=== PATIENT | female | born 1990 | race Hispanic/Latino ===

== ENCOUNTER 2020-01-14 04:35 | Inpatient (IN) | payer OTHER, SELFPAY ==
[2020-01-14] VITALS (24 sets, daily range): BP systolic 95–134; BP diastolic 50–77; PULSE 65–96; RESP 11–88; TEMP 36.2–37.2; O2SAT 16–100; BMI 26.9
[2020-01-14 05:12] LABS: Absolute Neutrophil Count 3.1 X10^3/uL (2.0-7.7); Basophil# 0.02 X10^3/uL; Basophil% 0.4 % (0-1); Eosinophil# 0.04 X10^3/uL; Eosinophils% 0.8 % (0-5); Hematocrit 34.3 % (37-47); Hemoglobin 10.8 g/dL (12.0-15.0); Mean Corp Hgb Conc 31.5 g/dL (32-36); Mean Corpuscular Hgb 25.8 pg (27.0-32.0); Mean Corpuscular Volume 82.1 fL (81-99); Mean Platelet Vol. 12.6 fl (6.2-12.0); Monocyte# 0.48 X10^3/uL; Monocyte% 9.3 % (0-10); NRBC Flagged by Analyzer 0 % (0-5); Neutrophil # 3.13 X10^3/uL (2.7-7.7); Neutrophil % 60.4 % (47-70); Platelet Count 219 K/mm3 (150-450); RBC Distribution Width CV 15.6 % (11.6-14.6); RBC Distribution Width SD 45.9 fl (35.1-43.9); Red Blood Count 4.18 M/mm3 (4.2-5.4); White Blood Count 5.2 K/mm3 (4.4-11.0)
[2020-01-14] MEDS: Lactated Ringers 1,000 ML 50 ML IV (05:14)
--- NOTE | 2020-01-14 05:38 | PCM.HP.BLA ---
History and Physical Date of Admission: 01/14/20 ACOG ANTEPARTUM RECORD - HISTORY AND PHYSICAL (01/14/2020) Name: LEN CERVANTES History of This : This is a 29-year-old G3, P1 Ab1 who presents to labor and delivery at 38+ weeks gestation with gross rupture of membranes. Exam suspicious for breech presentation and this was confirmed with bedside ultrasound. care has otherwise been uneventful. OB Physician: JUAN JOSE [place]'s Physician: [facility] ...................................................................... : 1990 Age: 29 Address: [address] [place] [address] Phone: (h) [phone] Insurance Carrier: [facility]/CLAIMS DEPT [id number] Emergency Contact: DEXTER PRUITT/ [phone] ...................................................................... Final JOHANA: 01/28/20 By Ultrasound: PARITY: (G-Total Pregnancies P-Fullterm,Premature,Induced AB,Spont AB, Ectopics, Multiple,Living) JOHANA CONFIRMATION: By LMP: 04/23/19 Final JOHANA: 01/28/20 OB PROBLEM LIST: Transfer of care from [facility] at 30 w re to inconsistent provider care. Cousin born w defects req total care. Had genetic testing already. Wants epidural but NOT to be totally numb. First baby born in [place]. Urine Group B Strep positive 06-16-19 and 11-19-19. Hx of SGA, growth u/s q4wks ALLERGIES: No Known Allergies MEDICATIONS: 28 mg iron-800 mcg tablet One pill by mouth once a day Unisom (doxylamine) 25 mg tablet One pill by mouth once a day SOCIAL HISTORY: Smoking - Never Alcohol Use - socially not while Diet - balanced Diet and Doesn't drink milk. Coffee once a week. Water 2 liters. Lifestyle - moderate stress lifestyle Exercise - active Job Description - homemaker Illicit Drug Use - denies use of street drugs Sexual Activity - Residence - lives with Place of - [facility] Spouse-Sig Other Name - Dexter Spouse-Sig Other Occupation - clinical advisor/ [employer] Spouse-Sig Other Phone No - [phone] Children Name(s) - Adela PRIOR DELIVERY HISTORY DEL DATE GEST LAB WT LB WT OZ TYPE ANES LABOR TX 10 Oct 30 10 0 0 0 Sab General No Jul 29 [phone] Vag Epidural No ANTEPARTUM FLOW CHART VISIT RTC FU F F IA U U DATE WK MD WKS HT PN HR M SS BP ED WT IA GL D EF ST __ ____ ___ __ __ ___ __ __ __ ___ __ __ __ ___ __ 24 Dec JM 1 36 V + + 118/60 sl 157 - - Dec JM 2 34 V on + 100/64 tr 156 - - Nov JM 2 33 V + + 100/58 0 153 tr - Dec 11 JM 2 31 - + + 110/64 0 151 tr - ANTEPARTUM NOTE(S): Jan 05 2020: Insomnia,Low Backache,Good FM Dec 22 2019: Dec 10 2019: Reviewed FM Nov 27 2019: transfer of care COMPREHENSIVE ANTEPARTUM NOTE(S): Jan 05 2020: 36wk, GBS bacteruria. For repeat growth u/s at 38wks w/ hx of SGA. JM Dec 22 2019: Len is here with SO for visit. She is doing well. Reports that she has a trace of swelling in her fingers. Medications and allergies reviewed. No other complaints or concerns expressed. LJW Dec 22 2019: 34wk/5d, Hx of SGA with previous delivery. Growth u/s Today AGA. For repeat u/s at 38wk/5d if no delivery by this time. NO GBS next visit as pt is GBS pos with GBS bacteruria. JM Dec 10 2019: eLn is here for visit. She is doing well. Asking what to take to the hospital here? Handout provided with this information. She plans to bottle feed her and asking if she needs to bring formula? Advised I do not think she needs to bring formula. Reviewed FM. LMT Dec 10 2019: 33wk, for repeat growth u/s at next visit for hx of SGA. JM Nov 27 2019: Len is a transfer of care from [facility]. She is doing well overall. Current on labs with [facility] and had Influenza and Tdap. Reviewed FM, PTL. LMT Nov 27 2019: 32yo at 31wk/1d with FINAL JOHANA: 01/28/20 by LMP c/w 7wk u/s transfer from [facility]. PNP wnl, O pos, 1hr GTT wnl. GBS bacteruria will need Abx in labor. Hx of SGA with previous baby, for growth u/s AGA, will repeat in 4 weeks. SEJAL Nov 24 2019: TELEHEALTH NOB- Len is a 29 yo G 3 P 1 transfer from [facility] with JOHANA 01-28-20 planning a vag del w epidural at [facility] using [facility] for post discharge care. She plans to formula feed although she briefly considered nursing. She is transferring care re to too many doctors and midwives there with no consistency of providers. 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 They are happy about the although she prefers to NOT be in the hospital over [place]. Len has NKA to meds, food, latex or the environment. Her diet sounds fairly balanced although she does not drink milk. She has about one cup of coffee per week and 2 liters of water daily. She is a lifetime non smoker, denies street drug use and drinks alcohol socially but not in pg. She is active with her toddler and was enc to walk 20-30 min most days. Genetics Screening info reviewed verbally noting she has an 11 yo cousin born w major defects including a very small head who requires total care. She had genetic testing done at [facility]. Warning signs in pg discussed as well as reaching this office after hours, OTC meds ok to take (will be given printed info Saturday.), wearing her seatbelt low on her abdomen with understanding voiced. She does not have a copy of What to Expect and will receive Saturday. Her past medical history includes chickenpox vaccine, untreated PPD, a ruptured appy in 2018 requiring 3 surgeries and 6 w hospitalization. She takes only a vitamin and for sleep, Unisom. Enc to call w any concerns. Visit took 45 minutes. Detailed History completed. Cathy CUETO. REVIEW OF SYSTEMS: GENERAL - Denies fever, or chills SKIN - Denies rash, new skin lesions, or change in moles EYES - Denies blurred vision, or change in visual acuity EARS - Denies ear pain, or difficulty hearing NOSE - Denies nasal congestion, discharge, or bleeding MOUTH - Denies sore throat, or difficulty swallowing NECK - Denies pain or swelling RESPIRATORY - Denies shortness of breath, cough, wheezing CARDIOVASCULAR - Denies palpitations, chest pain, orthopnea, PND, peripheral edema, syncope or claudication GASTROINTESTINAL - Denies nausea, vomiting, diarrhea, constipation, Denies abdominal pain, melena and or bright red blood GENITOURINARY - Denies dysuria, frequency of urination, urgency, or hesitancy MUSCULOSKELETAL - Denies joint or muscle pain, or back pain NEUROLOGICAL - Denies localized numbness, weakness, or tingling PSYCHIATRIC - Denies depression, anxiety, substance abuse or suicide attempts ENDOCRINE - Denies heat or cold intolerance, weight loss or gain, increasing thirst HEMATO-IMMUNOLOGIC - Denies easy bruising, bleeding, oral ulcerations or recurrent infections GENETICS SCREENING: Age 35+ years: No Thalassemia: No Neural Tube Defect: No Down Syndrome: No CLIFFORD-SACHS: No Sickle Cell Disease: No Hemophilia: No Musc. Dystrophy: No Cystic Fibrosis: No-declines screening [place] Chorea: No Mental Retardation: No Fragile X: No Other genetic: Yes Other defects: Yes SABs/still births: No Drugs since LMP: Yes Comments: Unisom at hs. INFECTION HISTORY: High risk AIDS: No High risk Hepatitis: No Exposed to TB: No Exposed to Herpes: No Rash/viral illness since LMP: No History of STD: No MENSTRUAL HISTORY: *Menses Regularity: RegularFrequency: 29BCP's at Conception: NoMenarche (Age Onset): 13* PAST SUMMARY: PARITY: 1. Total Pregnancies............ 3 2. Full Term Pregnancies........ 0 3. Premature.................... 0 4. Abortions - Induced.......... 0 5. Abortions - Spontaneous...... 1 6. Ectopics..................... 0 7. Multiple Births.............. 0 8. Living Children.............. 1 PAST #1: Date of :.................. 07/30/17 Gestation Weeks:................ 39 Length of labor(hours):......... 7 Sex:............................ F Weight-lbs:............... 6 Weight-oz:................ 7 Type of Delivery:............... Vag Type of Anesthesia:............. Epidural Place of Delivery:.............. [place] Treatment of Labor?:.... No Comment: ?IUGR VS SMALL PAST #2: Date of :.................. 10/21/18 Gestation Weeks:................ 10 Length of labor(hours):......... 0 Sex:............................ UNKNOWN Weight-lbs:............... 0 Weight-oz:................ 0 Type of Delivery:............... Sab Type of Anesthesia:............. General Place of Delivery:.............. [place] Treatment of Labor?:.... No Comment: PHYSICAL EXAMINATION General Appearence: 29 yo female in no acute distress Vital Signs: AF, VSS Heart: RRR without rubs or gallops Lungs: CTA x 2 Breasts: deferred Abdomen: gravid Pelvis: Cervix: 4/75, gross ROM Presentation: breech by u/s now Station: -2 Fetus: Size: AGA Movement: present Heart: present Labs for : LEN CERVANTES since 05/03/2019 ORDER DATEIN DESCRIPTION VALUE UNITS RANGE A+ COMMENT 36+ Week Labs 11/19/19 Group B Strep urine GBS positive Negative Reviewed by AGUILA 24-35 Week Labs 11/03/19 GTT 1 Hr 134 Reviewed by AGUILA CBC w/Diff 11/03/19 White Blood Cell Count 7.96 thous/mcl 3.8-10.8 Red Blood Cell Count 4.19 mill/mcl 3.90-5.20 Hemoglobin 11.3 g/dl 12.0-15.6 Hematocrit 35.8 % 35.0-46.0 Platelet Count 302 thous/mcl 150-450 Reviewed by AGUILA Other 08/11/19 Unusual lab Hepatitis C negative Reviewed by AGUILA Initial OB Labs 08/11/19 Rubella positive Immune VDRL non reactive Non Reactive HBsAg negative Negative HIV Test non reactive Negative Reviewed by AGUILA Initial OB Labs 08/11/19 Blood Type O Rh Type positive Antibody Screen negative Negative Hemoglobin Initial OB 11.4 Hematocrit Initial OB 35.5 PLT 289 Reviewed by AGUILA GC-Chlamydia 06/16/19 Chlamydia negative Negative GC negative No Growth Reviewed by AGUILA Urine Culture 06/16/19 Urine Culture Group B Strep positive No growth Reviewed by AGUILA Impression /Plan: 38+ week intrauterine with gross rupture of membranes and breech presentation. Discussed proceeding with section and discussed the procedure in detail including the risks, benefits, and alternatives. All questions were answered. Preparations in progress for delivery.
--- NOTE | 2020-01-14 06:01 | PCM.OPRPT ---
Delivery Classification: CHRISTY Final JOHANA: 01/28/20 Final JOHANA Source: US <20 weeks Gestational age: 38 Weeks and 0 Days supervisor brew house: Janeth Valencia Type of Anesthesia:: Spinal - With Duramorph Date of Procedure: 01/14/20 Pre-Operative Diagnosis: Breech Presentation, Spontaneous Rupture of Membranes Post-Operative Diagnosis: Breech Presentation, Spontaneous Rupture of Membranes Indications for : Breech Description of Procedure: Surgeon: Jozef Granado MD, FACOG Anesthesia: Ofelia Mera MD Procedure: Primary low Transverse Cervical Caesarean Section Findings: Viable male with Apgars of 8/9 in fatmata breech presentation with clear amniotic fluid and normal three-vessel placenta weighing 8 lb 4 oz. Indication: This is a 29-year-old who presents with rupture of membranes and breech presentation at 38 weeks gestation. care has otherwise been uneventful. The patient has been counseled regarding the risk and indications of this procedure including the possibility of bleeding infection and injury to surrounding structures such as bowel bladder. All questions were answered. Procedure: Patient was taken to the operating room where after spinal anesthesia was placed, the patient was prepped and draped in usual sterile fashion and a Belcher catheter was placed. The abdomen was entered through a Pfannenstiel incision and peritoneum was entered bluntly. After developing a bladder flap on the lower uterine segment a low transverse incision was made on the uterus and breech was delivered onto the operative field and the nose mouth and oropharynx were bulb suctioned. Subsequently a viable male was born with Apgars of/9. The was noted to cry move all extremities vigorously on the operative field. The umbilical cord was doubly clamped and ligated and infant handed to the nursery personnel who were present for the delivery. Placenta was delivered and noted to be 3 vessels and normal. Uterus was exteriorized and remaining placental tissue was removed. The uterus was then closed in 2 layers first with running locked 0 Vicryl suture followed by a second imbricating layer with 0 Vicryl suture. 0 Vicryl suture was then used in a horizontal mattress interrupted fashion to affect final hemostasis of the uterine incision line. Normal fallopian tubes and ovaries were visualized and the uterus was returned to the pelvis. Hemostasis was noted and rectus abdominis muscles were reapproximated in the midline with interrupted Number 0 Vicryl suture in a horizontal mattress fashion. Fascia was closed with running Number 1 PDS Strata fix suture. Subcutaneous tissue was irrigated with copious amounts of saline solution and then closed with running 3-0 Vicryl suture. Skin was closed with 4-0 monocryl suture in a running subcuticular fashion. Steri strips and a Mepilex dressing were placed across the incision. The patient tolerated the procedure well and was taken to the recovery room in satisfactory condition. Sponge, needle, and instrument counts were all reportedly correct. EBL was 750 cc. Ancef 2 gms IV was given prior to the procedure. Spicemen to Pathology: None Complications: None Amniotic Membrane Rupture Type: Spontaneous Amniotic Fluid Description: Clear Placenta Disposition: [facility] Specimen(s) sent to pathology: None Drain: Belcher to straight drain Fluids Replaced: Crystalloid Cord Entanglement: Around neck x 1, loose Cord Vessel Description: 3 Vessels Esitmated Blood Loss (ml): 750 cc Gender: Male (1 minute): 8 (5 minute): 9 Antibiotic Given: Ancef 2 grams IV x1 Pt instructed on risks of surgery: Bleeding, Infection, Injury to surrounding structure(s) including bowel and bladder Complications: None - Admit VTE Documentation VTE Present on Admission: Yes VTE Mechan Device Prophylaxis: SCD's
--- NOTE | 2020-01-14 06:12 | DCINST_ITS ---
<Jozef Granado - Last Filed: 01/14/20 06:12> Discharge Diet: No Restrictions Discharge Activity: May not drive while taking narcotic pain medications., May Shower, May Take a Tub Bath May resume sexual activity in: 4-6 weeks Lifting Restrictions: 20 pounds Additional Activity Instructions:: Nothing in the vagina for 4-6 weeks. You may return to work/school in 6 weeks. Call your doctor if your incision/area has: Continuous Slow Oozing, Sudden Increased Bleeding, Increased Pain/ Swelling, Increased Redness, Foul Smelling Discharge Call your doctor if you observe: Fever of 101 or Higher, Inability to urinate, Inability to have a bowel movement, Using more than one pad per hour Additional Instructions: If you experience any of the following, contact your healthcare provider. * Bleeding that soaks a pad every hour for 2 hours * Fever 100.4 or higher * Unrelieved incision or abdominal pain * Swelling, redness, discharge or bleeding from your incision or episiotomy site * Your incision begins to separate * Problems urinating (including inability to urinate or burning while urinating). * Visual changes * Severe headache * Flu-like symptoms * Pain or redness in one of both of your breasts * Pain, warmth, tenderness or swelling in your legs, especially the calf area * Frequent nausea and vomiting * Symptoms of depression or anxiety If you experience any of the following, call 911 or go to the nearest Emergency Room. * Chest pain * Problems breathing * Seizure activity * Partial or complete paralysis of a body part, slurred speech, weakness or drooping of the face, or a sudden inability to walk or hold your balance Allergies/Adverse Reactions: Allergies No Known Allergies Allergy (Verified 01/14/20 04:26) Medications to take at Discharge Docusate Sodium [Colace] 100 mg PO BID PRN PRN #60 cap 01/14/20 Doxylamine Succinate [Unisom Sleep Aid] 25 mg PO DAILY 01/14/20 Oxycodone [Oxyir] 5 mg PO Q6H PRN PRN 7 Days #20 tab 01/14/20 Pnv No.95/Ferrous Fum/Folic AC [ Formula Tablet] 1 tab PO DAILY 01/14/20 The following prescriptions were given: Docusate Sodium [Colace] 100 mg PO BID PRN PRN #60 cap PRN Reason: Constipation Transmission Status: Received by [facility] Oxycodone [Oxyir] 5 mg PO Q6H PRN PRN 7 Days #20 tab PRN Reason: Pain Score 6-10 Transmission Status: Received by [facility] Follow-Up: Call to make an appointment with your doctor for an incision check in 1-2 weeks. You will also need a 6 week post- follow up appointment. Test results from this visit will be discussed in further detail at your follow- up appointment, if applicable. Please Follow Up With: Hai Martinez MD - [phone] When: Call to make an appointment for an incision check in 2 weeks. <Hai Martinez - Last Filed: 01/15/20 08:26> Additional Instructions: If you experience any of the following, contact your healthcare provider. * Bleeding that soaks a pad every hour for 2 hours * Fever 100.4 or higher * Unrelieved incision or abdominal pain * Swelling, redness, discharge or bleeding from your incision or episiotomy site * Your incision begins to separate * Problems urinating (including inability to urinate or burning while urinating). * Visual changes * Severe headache * Flu-like symptoms * Pain or redness in one of both of your breasts * Pain, warmth, tenderness or swelling in your legs, especially the calf area * Frequent nausea and vomiting * Symptoms of depression or anxiety If you experience any of the following, call 911 or go to the nearest Emergency Room. * Chest pain * Problems breathing * Seizure activity * Partial or complete paralysis of a body part, slurred speech, weakness or kevon oping of the face, or a sudden inability to walk or hold your balance Follow-Up: Call to make an appointment with your doctor for an incision check in 1-2 weeks. You will also need a 6 week post- follow up appointment. Test results from this visit will be discussed in further detail at your follow- up appointment, if applicable.
[2020-01-14] MEDS: Sodium Citrate/Citric Acid 30 ML UDC PO (06:23)
[2020-01-14] MEDS: Cefazolin 2 GM in 0.9% Normal Saline 100 ML IV (06:38)
[2020-01-14] MEDS: Methylergonovine 0.2 MG/ML Ampul IM (07:05)
[2020-01-14] MEDS: Oxytocin 30 units/NS 500 ml 30 UNITS/500 ML IV.SOLN 167 UNITS IV (08:05)
[2020-01-14] MEDS: Lactated Ringers 1,000 ML 100 ML IV (11:34)
[2020-01-14] MEDS: Ketorolac 30 MG/ML Syringe IV ×3 (12:06→23:31)
[2020-01-14] MEDS: Acetaminophen 500 MG Tablet 1000 MG PO ×3 (12:06→23:30)
[2020-01-14] MEDS: Senna/Docusate Sodium 1 Tablet PO (12:06)
[2020-01-14] MEDS: Cefazolin 1 GM/50 ML BAG IV ×2 (15:12→23:28)
[2020-01-14] MEDS: 0.9% Saline Lock 10 ML Syringe IV (23:28)
[2020-01-15 03:35] VITALS: BP 114/58; PULSE 69; RESP 18; TEMP 36.4
[2020-01-15] MEDS: Ketorolac 30 MG/ML Syringe IV (06:09)
[2020-01-15] MEDS: Acetaminophen 500 MG Tablet 1000 MG PO ×2 (06:09→12:17)
[2020-01-15] MEDS: 0.9% Saline Lock 10 ML Syringe IV (06:09)
[2020-01-15 07:53] LABS: Hematocrit 31.2 % (37-47); Hemoglobin 9.5 g/dL (12.0-15.0); Mean Corp Hgb Conc 30.4 g/dL (32-36); Mean Corpuscular Hgb 25.5 pg (27.0-32.0); Mean Corpuscular Volume 83.9 fL (81-99); Mean Platelet Vol. 11.6 fl (6.2-12.0); Platelet Count 174 K/mm3 (150-450); RBC Distribution Width CV 15.7 % (11.6-14.6); RBC Distribution Width SD 47.9 fl (35.1-43.9); Red Blood Count 3.72 M/mm3 (4.2-5.4); White Blood Count 10.2 K/mm3 (4.4-11.0)
[2020-01-15 08:20] VITALS: BP 112/64; PULSE 75; RESP 16; TEMP 36.7
--- NOTE | 2020-01-15 08:24 | PN.OBGYN_ITS ---
Subjective: No overnight complaints. Pain well controlled. - Physical Exam Vitals/I&O's: Vital Signs Temp Pulse Resp BP Pulse Ox 98.1 F 75 16 112/64 99 01/15/20 08:20 01/15/20 08:20 01/15/20 08:20 01/15/20 08:20 01/14/20 19:00 Oxygen Delivery Method Room Air Weight: 156 lb 9.6 oz Body Mass Index (BMI) 26.9 Intake and Output for Last 24 Hours 01/13/20 01/14/20 01/15/20 23:59 23:59 23:59 Intake Total 3016.66 / 3016.66 Output Total 1450 / 1450 1050 / 1050 Balance 1566.66 / 1566.66 -1050 / -1050 General: Alert, Oriented x3, Cooperative, No apparent distress HEENT: Atraumatic, Normocephalic Oral: Moist Mucosa Neck: Supple, No JVD Abdomen: Bowel Sounds Present, Soft, Non Tender, Non-Distended, - - Bandage clean dry and intact. Fundus firm and below umbilicus Extremities: No clubbing, No cyanosis, No edema Neurological: Neuro grossly intact Psych/Mental Status: Normal Affect, Appropriate, Alert and oriented to time, place, person, mood and affect Microbiology Past 72 Hours 01/14/20 04:55 Interface Orders SARS-CoV-2 Antigen (Rapid) - Final Laboratory Results 01/15/20 06:15: WBC 10.2, RBC 3.72 L, Hgb 9.5 L, Hct 31.2 L, MCV 83.9, MCH 25.5 L, MCHC 30.4 L, RDW Std Deviation 47.9 H, RDW Coeff of Duyen 15.7 H, Plt Count 174, MPV 11.6 Current Medications Acetaminophen (Acetaminophen 500 Mg Tablet) 1,000 mg PO Q6 JENNIFER Last Admin: 01/15/20 06:09 Dose: 1,000 mg Documented by: Bisacodyl (Bisacodyl 10 Mg Suppository) 10 mg RECTAL UD PRN PRN Reason: If no BM Hydrocortisone (Hydrocortisone 2.5% Crm) 1 applic TOPICAL TID PRN PRN; Protocol PRN Reason: Discomfort Ibuprofen (Ibuprofen 600 Mg Tablet) 600 mg PO Q6 JENNIFER Methylergonovine Maleate (Methylergonovine 0.2 Mg/Ml Ampul) 0.2 mg IM X1 PRN PRN Reason: Uterine Atony Last Admin: 01/14/20 07:05 Dose: 0.2 mg Documented by: Naloxone HCl (Naloxone 0.4 Mg/Ml Syringe) 0.02 mg IV Q1M PRN PRN Reason: RR <10 and pt unresponsive Ondansetron HCl (Ondansetron 4 Mg/2 Ml Vial) 4 mg IV Q4H PRN PRN PRN Reason: Nausea Oxycodone HCl (Oxycodone 5 Mg Tablet) 5 - 10 mg PO Q4H PRN PRN PRN Reason: Pain Score 4-10 Prochlorperazine Edisylate (Prochlorperazine 10 Mg/2 Ml Vial) 10 mg IV Q6H PRN PRN PRN Reason: NAUSEA Senna/Docusate Sodium (Senna/Docusate Sodium 1 Tablet) 0 tablet PO DAILY JENNIFER Last Admin: 01/14/20 12:06 Dose: 1 tablet Documented by: Simethicone (Simethicone 80 Mg Tablet) 80 mg PO PCHS PRN PRN Reason: Indigestion/stomach pain Sodium Chloride (0.9% Saline Lock 10 Ml Syringe) 5 - 15 ml IV UD PRN PRN Reason: SALINE FLUSH Last Admin: 01/15/20 06:09 Dose: 10 ml Documented by: Medical Necessity - Tobacco Use Smoking Status: Never smoker Assessment/Plan Postoperative day 1 status post primary section for breech presentation and rupture of membranes. Pain well controlled. Bottlefeeding. Okay to discharge home if okay with senior hr manager
[2020-01-15] MEDS: Ibuprofen 600 MG Tablet PO (12:15)
[2020-01-15 14:17] VITALS: BP 103/71; PULSE 77; RESP 16; TEMP 36.4
--- NOTE | 2020-01-15 15:04 | CASEMGMT ---
Social Work Assessment Labor and Delivery Unit [place] [address] Phone number: [phone] Date of Referral: 01.15.2020 Time of Referral: 732 Referred By: Dr. Granado Date of Intervention: 01.15.2020 Time of Intervention: 111 Reason for Referral: maternal history of depression. History obtained from: medical records and mother of baby (CUBA) Len Marie; father of baby (FOB) Dexter Contreras also present. Household composition: MOB, FOB, older daughter, and 2 dogs live in the home. Patient's parent/guardian status: CUBA is 28 years old, born and raised in [place] [facility], now to PORTIA who is from [place]. No reports or indication of abuse or neglect; this was denied by CUBA to nursing upon admission. No indication of concerns during assessment. CUBA and PORTIA now have 2 children together. Sondra, born 07/30/2017; baby boy Jayson, born 01/14/2020. Medical History: CUBA is 3, para 1 now 2 after delivering Jayson. CUBA had a 12-week miscarriage in October 2018. care for this started early but transferred care from the [facility] in [place] later in the . Jayson was born at 38 weeks gestation, weighing 8 pounds 4 ounces. Apgars 8 and 9 at 1 and 5 minutes of life respectively. Educational Status: CUBA has 16 years of education. No issues with reading, writing, or learning comprehension. CUBA was born and raised in [place] [facility] so Ken[place] is a second language. 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 PORTIA will be starting new job as a manager operating at the [employer] up in [facility]. Supplies: CUBA reports to have all needed baby supplies including a safe sleep space, car seat, clothing, diapers, wipes. CUBA is bottlefeeding and is able to buy formula. Childcare/Caregiver(s): MOB will be the primary caregiver. FOB would help will help at home. Transportation: No reported concerns. Programs/Agencies Involved: Family is active with WIC. No other agency involvement reported. Declined referral to help me grow. Children Services/Legal Issues: No reported history. Behavioral Health Issues: Mental Health History: CUBA reports history of depression, but did not know until afterwards that is what was happening to her. MOB reports the depression lasted for about 6 months. MOB reports that there was a lot of change in a very short amount of time including moving from [place] [facility] to [place], getting shortly after marriage and having a baby while living in [place], and adjusting to being away from her own family. MOB reports that she tried counseling during this at [facility], but did not really enjoy it because it was found counseling and also did not feel like the counselor could really relate or connect with the patient. MOB reportedly likes to journal and exercise. Substance Use History: None reported or indicated. Family History: Not discussed. Drug Screens: Maternal screen negative on 06.16.2019. Family/Social Stressors: CUBA reports has lived in [place] for a year and a half now and feeling more settled. Did experience at 12 week loss in October 2018. Support Systems: FOB, who will be off of work to help out for the next month. PORTIA's brother and also live close by. Depression/Shaken Baby/Safe Sleeping: Information provided. ASSESSMENT: Met with MOB and FOB in room. Introduced to social work role and reason for visit. MOB and FOB working together when this write entered the room, helping the baby who was fussy. FOB held baby during social work visit. MOB pleasant, cooperative, good eye contact. MOB reports to feel better moodwise this time around. MOB receptive to taking packet on mood and anxiety disorders, resources available, and also a resource list for [facility]. MOB reports to have needed supplies to care for baby, and to have adequate support at home going. No voiced concerns by nursing staff regarding mother/child interactions or bonding. PLAN: MOB and infant to discharge home when ready. Community resources and mood and anxiety disorder information provided in case of future need. No other services requested or indicated. -VIOLETTE Beyer MSW *Information documented in this assessment generated with [employer]*
== END 2020-01-15 17:05 | disposition home or self-care (01) | DRG 788 ==
LOC: OBT 04:42 → WP 04:42
PROVIDERS: Admitting Provider Obstetrics & Gynecology; Referring Provider Obstetrics & Gynecology; Visit Provider Obstetrics & Gynecology
DX: O32.1XX0 Maternal care for breech presentation, not applicable or unspecified (principal); Z3A.38 38 weeks gestation of pregnancy; Z37.0 Single live birth
CPT/HCPCS: 59025; 59050; 76815; 85025; 85027; 86850; 86900; 86901; 87426; 99218; 99251; J7120; A4216; G0378; G0463; J2405

== ENCOUNTER → 2020-10-03 16:49 | Outpatient (CLI) | payer OTHER, SELFPAY ==
[2020-10-07 13:37] LABS: HPV APTIMA, High Risk Negative (Negative)
== END ==
PROVIDERS: Visit Provider Obstetrics & Gynecology
DX: Z12.4 Encounter for screening for malignant neoplasm of cervix (principal)
CPT/HCPCS: 87624; 88175; G0145